=== PATIENT | female | born 1990 | race African-American/Black ===

== ENCOUNTER 2016-12-17 06:27 | Emergency (ER) | payer BC ==
[~2016-12-17 06:27] MED LIST: ETHI1TAB6; GABA300C3 PO; METH18 PO; ZOFR4TAB3 SL; [UNRECOGNIZED DRUG - CODE] PO
[2016-12-17 06:29] VITALS: BP 115/58; PULSE 77; RESP 16; TEMP 97.6; O2SAT 98
[2016-12-17] MEDS ORDERED: GABA300C5 PO (06:40)
[2016-12-17] MEDS ORDERED: LEVE10003 PO (06:41)
[2016-12-17] MEDS ORDERED: ETHI1TAB4 PO (06:41)
[2016-12-17 06:42] VITALS: BP 135/73; PULSE 86; RESP 18; O2SAT 100
[2016-12-17 06:47] VITALS: O2SAT 98
[2016-12-17 07:07] LABS: AUTOMATED NEUTROPHIL # 4.9 TH/MM3 (1.8-7.7); BASOPHIL % 0.5 % (0.0-2.0); EOSINOPHIL % 0.3 % (0.0-4.0); HEMATOCRIT 36.1 % (35.0-46.0); HEMO FLAGS DIFF FINAL; LYMPH % 26.2 % (9.0-44.0); LYMPHOCYTE # 1.9 TH/MM3 (1.0-4.8); MEAN CELL VOLUME 90.4 FL (80.0-100.0); MEAN CORPUSCULAR HEMOGLOBIN 30.7 PG (27.0-34.0); MEAN CORPUSCULAR HGB CONC 33.9 % (32.0-36.0); MONO % 4.5 % (0.0-8.0); NEUT % 68.5 % (16.0-70.0); PLATELET COUNT 283 TH/MM3 (150-450); RED BLOOD COUNT 3.99 MIL/MM3 (4.00-5.30); RED CELL DISTRIBUTION WIDTH 12.6 % (11.6-17.2); WHITE BLOOD COUNT 7.1 TH/MM3 (4.0-11.0)
[2016-12-17 07:14] LABS: BACTERIA, URINE RARE /hpf; BLOOD, URINE LARGE (NEG); COMMENT (UR) CULT NOT INDICATED; CULTURE IF INDICATED CULT NOT INDICATED; GLUCOSE,URINE NEG (NEG); KETONE, URINE NEG (NEG); MUCUS URINE FEW /lpf (OCC); NITRITE,URINE NEG (NEG); PH, URINE 7.5 (5.0-8.5); SQUAMOUS EPITHELIAL CELL URINE <1 /hpf (0-5); URINE COLOR YELLOW (YELLW/STRAW)
[2016-12-17 07:27] LABS: ALT (GPT) 23 U/L (10-53); ANION GAP 7 MEQ/L (5-15); AST (GOT) 10 U/L (15-37); BICARBONATE 26.3 MEQ/L (21.0-32.0); BLOOD UREA NITROGEN 12 MG/DL (7-18); CHLORIDE 106 MEQ/L (98-107); GLOMERULAR FILTRATION RATE 113 ML/MIN (>89); POTASSIUM 3.3 MEQ/L (3.5-5.1); SODIUM (NA) 139 MEQ/L (136-145)
[2016-12-17 07:30] LABS: ALKALINE PHOSPHATASE 58 U/L (45-117); TOTAL BILIRUBIN ADULT 0.4 MG/DL (0.2-1.0)
[2016-12-17] MEDS ORDERED: ONDANSETRON HCL 4 MG/2 ML VIAL IV PUSH ONE (07:45)
[2016-12-17] MEDS ORDERED: POTASSIUM CHLORIDE 25 MEQ EFFERVESCENT TAB PO ONE (07:45)
[2016-12-17] MEDS ORDERED: SODIUM CHLOR 0.9% 1000 ML INJ 1,000 ML IV ONE (07:45)
[2016-12-17] MEDS ORDERED: PANTOPRAZOLE SODIUM 40 MG VIAL IV PUSH ONE (07:45)
[2016-12-17] MEDS ORDERED: MORPHINE SULFATE 8 MG/ML INJ IV PUSH ONE (07:45)
[2016-12-17 07:59] VITALS: BP 126/72; PULSE 73; RESP 18; O2SAT 96
--- NOTE | 2016-12-17 08:49 | RADRPT ---
EXAM DATE/TIME: 12/17/2016 08:14 [facility] COMPARISON: No previous studies available for comparison. INDICATIONS : Right upper quandrant pain. MEDICAL HISTORY : Seizures. Asthma. Gallstones. ADHD. SURGICAL HISTORY : None. ENCOUNTER: Initial ACUITY: 1 day PAIN SCORE: 8/10 LOCATION: Right upper quadrant MEASUREMENTS: LIVER: 14.3 cm length COMMON DUCT: 6 mm RIGHT KIDNEY: 10.2 x 5.1 x 5.3 cm FINDINGS: LIVER: Normal echotexture without focal lesion or ductal dilatation. The portal system is patent. No ascite s. COMMON DUCT: No intraluminal mass or stone visualized. GALLBLADDER: There are multiple stones in the gallbladder. The largest stone measures approximately 1.5 cm. There is thickening of the gallbladder wall at 5 mm. No fluid around the gallbladder. PANCREAS: The visualized portions are within normal limits. RIGHT KIDNEY: No evidence of hydronephrosis, stone, or mass. CONCLUSION: 1. Multiple gallstones in the gallbladder. No biliary tract obstruction. Mild thickening of the gallb ladder wall. These findings indicate chronic gallbladder disease. 2. Otherwise, the rest of the exam is grossly unremarkable. Booker Sahni MD on December 17, 2016 at 8:47 Board Certified Radiologist. This report was verified electronically.
[2016-12-17] MEDS ORDERED: KETOROLAC TROMETHAMINE 30 MG/ML (IVP) VIAL IV PUSH ONE (09:15)
[2016-12-17 09:19] VITALS: BP 102/55
[2016-12-17] MEDS ORDERED: ZOFR4TAB3 SL (09:23)
[2016-12-17] MEDS ORDERED: HYDR-3516 PO (09:23)
--- NOTE | 2016-12-17 09:23 | PD ---
HPI Chief Complaint: Abdominal Pain Time Seen by Provider: 07:04 Travel History International Travel<30 days: No Contact w/Intl Traveler<30days: No Traveled to known affect area: No History of Present Illness HPI 26-year-old female came to the emergency room with history of right upper quadrant abdominal pain that started at 2 in the morning. Patient says that she has had this kind of pain in the past. She was told 4 years ago that she has gallbladder stones and she should be able to pass it on her own. Her last meal was last night dinner which was cheeseburgers. She has vomited multiple times since then. She appeared to be in distress. The pain is mostly in the right upper quadrant located without much radiation. No diarrhea. She has not taken anything for the pain at home. Vital signs were relatively stable. She is otherwise a healthy person. She is currently on her period. [facility] Past Medical History Narrative Medical List of her past medical, surgical, social and family history is reviewed from the nursing note. Hx Anticoagulant Therapy: No ADHD: Yes Asthma: Yes Cardiovascular Problems: No Chemotherapy: No Cerebrovascular Accident: No Diabetes: No Diminished Hearing: No Gastrointestinal Disorders: Yes (gallstones) Psychiatric: Yes (ADHD) Respiratory: No Immunizations Current: Yes Seizures: Yes Tetanus Vaccination: Unknown Influenza Vaccination: No ?: Not LMP: : 0 Past Surgical History Hysterectomy: No Social History Alcohol Use: Yes (OCC) Tobacco Use: No Substance Use: No Allergies-Medications (Allergen,Severity, Reaction): Coded Allergies: acetaminophen (Unverified Allergy, Mild, Rash, 12/17/16) Comments List of her allergies reviewed from the nursing note. Reported Meds & Prescriptions Reported Meds & Active Scripts Active Zofran Odt (Ondansetron Odt) 4 Mg Tab 4 Mg SL Q6HR PRN Hydrocodone-Acetaminophen 5-325 mg Tab 1 Tab PO Q6H PRN Reported Callie (Drospirenone-Ethinyl Estradiol) 3-0.03 Mg Tab 1 Tab PO DAILY Levetiracetam 1,000 Mg Tab 1,000 Mg PO BID Gabapentin 300 Mg Cap 300 Mg PO BID Narrative Medication List of her home medications reviewed from the nursing note. Review of Systems Except as stated in HPI: all other systems reviewed are Neg Gastrointestinal: Positive: Vomiting, Abdominal Pain Physical Exam Narrative GENERAL: Awake, alert, moderate to significant distress, anxious SKIN: Focused skin assessment warm/dry. HEAD: Atraumatic. Normocephalic. EYES: Pupils equal and round. No scleral icterus. No injection or drainage. ENT: No nasal bleeding or discharge. Mucous membranes pink and moist. NECK: Trachea midline. No JVD. CARDIOVASCULAR: Regular rate and rhythm. No murmur appreciated. RESPIRATORY: No accessory muscle use. Clear to auscultation. Breath sounds equal bilaterally. GASTROINTESTINAL: Abdomen soft, Mott sign positive, nondistended. Hepatic and splenic margins not palpable. MUSCULOSKELETAL: No obvious deformities. No clubbing. No cyanosis. No edema. NEUROLOGICAL: Awake and alert. No obvious cranial nerve deficits. Motor grossly within normal limits. Normal speech. PSYCHIATRIC: Appropriate mood and affect; insight and judgment normal. Data Data Last Documented VS Orders Orders Complete Blood Count With Diff (12/17/16 06:45) Comprehensive Metabolic Panel (12/17/16 06:45) Urinalysis - C+S If Indicated (12/17/16 06:45) Ed Urine Pregnancytest Poc (12/17/16 06:45) Iv Access Insert/Monitor (12/17/16 06:45) Oxygen Administration (12/17/16 06:45) Oximetry (12/17/16 06:45) Lipase (12/17/16 06:45) Potassium Chloride Eff (K-Lyte Cl Eff) (12/17/16 07:45) Ondansetron Inj (Zofran Inj) (12/17/16 07:45) Sodium Chlor 0.9% 1000 Ml Inj (Ns 1000 M (12/17/16 07:45) Ed Poc Ultrasound (12/17/16 ) Pantoprazole Inj (Protonix Inj) (12/17/16 07:45) Morphine Inj (Morphine Inj) (12/17/16 07:45) Us Abdomen Gallbladder (12/17/16 ) Ed Discharge Order (12/17/16 09:14) Ketorolac Inj (Toradol Inj) (12/17/16 09:15) Labs Laboratory Tests Test 12/17/16 06:45 White Blood Count 7.1 TH/MM3 Red Blood Count 3.99 MIL/MM3 Hemoglobin 12.2 GM/DL Hematocrit 36.1 % Mean Corpuscular Volume 90.4 FL Mean Corpuscular Hemoglobin 30.7 PG Mean Corpuscular Hemoglobin Concent 33.9 % Red Cell Distribution Width 12.6 % Platelet Count 283 TH/MM3 Mean Platelet Volume 8.2 FL Neutrophils (%) (Auto) 68.5 % Lymphocytes (%) (Auto) 26.2 % Monocytes (%) (Auto) 4.5 % Eosinophils (%) (Auto) 0.3 % Basophils (%) (Auto) 0.5 % Neutrophils # (Auto) 4.9 TH/MM3 Lymphocytes # (Auto) 1.9 TH/MM3 Monocytes # (Auto) 0.3 TH/MM3 Eosinophils # (Auto) 0.0 TH/MM3 Basophils # (Auto) 0.0 TH/MM3 CBC Comment DIFF FINAL Differential Comment Urine Color YELLOW Urine Turbidity CLEAR Urine pH 7.5 Urine Specific [place]bilt 1.024 Urine Protein 30 mg/dL Urine Glucose (UA) NEG mg/dL Urine Ketones NEG mg/dL Urine Occult Blood LARGE Urine Nitrite NEG Urine Bilirubin NEG Urine Urobilinogen LESS THAN 2.0 MG/DL Urine Leukocyte Esterase NEG Urine RBC 1 /hpf Urine WBC 2 /hpf Urine Squamous Epithelial Cells <1 /hpf Urine Amorphous Sediment RARE Urine Bacteria RARE /hpf Urine Mucus FEW /lpf Microscopic Urinalysis Comment CULT NOT INDICATED Blood Urea Nitrogen 12 MG/DL Creatinine 0.76 MG/DL Random Glucose 108 MG/DL Total Protein 7.7 GM/DL Albumin 3.9 GM/DL Calcium Level 8.9 MG/DL Alkaline Phosphatase 58 U/L Aspartate Amino Transf (AST/SGOT) 10 U/L Alanine Aminotransferase (ALT/SGPT) 23 U/L Total Bilirubin 0.4 MG/DL Sodium Level 139 MEQ/L Potassium Level 3.3 MEQ/L Chloride Level 106 MEQ/L Carbon Dioxide Level 26.3 MEQ/L Anion Gap 7 MEQ/L Estimat Glomerular Filtration Rate 113 ML/MIN Lipase 77 U/L [facility] Medical Decision Making Medical Screen Exam Complete: Yes Emergency Medical Condition: Yes Medical Record Reviewed: Yes Differential Diagnosis Acute cholecystitis, biliary colic, ascending cholangitis Narrative Course 9:19 AM blood test results are back and within acceptable limits. Based on the bedside ultrasound that I had done I ordered a formal ultrasound. That shows multiple gallbladder stones along with chronic gallbladder changes from chronic disease. I discussed the case with the general surgeon Dr. Crandall and as per him since there is no elevated WBC or LFTs it is okay to discharge her home once pain control is achieved and he'll follow-up with her in his office and schedule an outpatient appointment for surgery. I discussed this with the patient. She said the pain seemed to be coming back and I have ordered a second dose of pain medication. At this point I am comfortable discharging her home otherwise. She was hydrated as well. Procedures Procedure Narrative Emergency department right upper quadrant ultrasound was performed with patient consent. Curvilinear probe was used in the transverse and sagittal views within the right upper quadrant revealing gallbladder with multiple gallstones but without obvious wall thickening or cholecystic fluid. EKG Prior to Arrival: No Physician Communication Physician Communication Dr. Butler Diagnosis Primary Impression: Biliary colic Additional Impression: Cholelithiasis Qualified Codes: K80.20 - Calculus of gallbladder without cholecystitis without obstruction Referrals: Kirk Crandall MD 2 days Additional Instructions: Called the office of the general surgeon whose name and number been given to you to make an appointment for an outpatient surgery to get the gallbladder taken out. Meanwhile do not eat food that 80s fatty or high fat containing. Take clear liquid diet for the next 24 hours. Take the medication as per the prescription direction. Pain medicine will make you groggy. Do not drive or operate heavy machinery while on the medications. Med/Other Pt SpecificInfo: Prescription(s) given Scripts Ondansetron Odt (Zofran Odt) 4 Mg Tab 4 MG SL Q6HR Y for Nausea/Vomiting, #15 TAB 0 Refills Prov: Terry Nava MD 12/17/16 Hydrocodone-Acetaminophen (Hydrocodone-Acetaminophen) 5-325 mg Tab 1 TAB PO Q6H Y for PAIN, #15 TAB 0 Refills Prov: Terry Nava MD 12/17/16 Disposition: 01 DISCHARGE HOME Condition: Stable Terry Nava MD Dec 17, 2016 09:23
== END 2016-12-17 10:18 | disposition home or self-care (01) ==
LOC: NEPE 06:27
DX: K80.20 Calculus of gallbladder without cholecystitis without obstruction (principal)
CPT/HCPCS: 76705; 80053; 81001; 83690; 84703; 85025; 96361; 96374; 96375; 99285; C9113; J1885; J2270; J2405; J7030

== ENCOUNTER 2017-01-01 07:35 | Observation (INO) | payer BC ==
[~2017-01-01] VITALS: Ht 167.6 cm; Wt 72.3 kg
[~2017-01-01 07:35] MED LIST changes: +ETHI1TAB4 PO; -ETHI1TAB6; -GABA300C3 PO; +GABA300C5 PO; +LEVE10003 PO; -METH18 PO; -ZOFR4TAB3 SL; -[UNRECOGNIZED DRUG - CODE] PO
[2017-01-01] MEDS ORDERED: SODIUM CHLORID 0.9% 500 ML IV PRN (08:15)
[2017-01-01] MEDS ORDERED: CHLORHEXIDINE GLUCONATE 2 % 1 PACK (2 CLOTHS) TOPICAL PRN (08:15)
[2017-01-01] MEDS ORDERED: POVIDONE IODINE 5% (ANTISEPSIS KIT) 4 APPLICATIONS EACH NARE PRN (08:15)
[2017-01-01] MEDS ORDERED: LACTATED RINGER'S 1000 ML IV PRN (08:15)
[2017-01-01] MEDS ORDERED: METOPROLOL TARTRATE 25 MG TAB PO PRN (08:15)
[2017-01-01] MEDS ORDERED: INSULIN HUMAN REGULAR 1,000 UNITS/10 ML VIAL SQ PRN (08:15)
[2017-01-01 09:05] LABS: AUTOMATED NEUTROPHIL # 2.7 TH/MM3 (1.8-7.7); BASOPHIL % 0.6 % (0.0-2.0); EOSINOPHIL # 0.1 TH/MM3 (0-0.4); EOSINOPHIL % 1.1 % (0.0-4.0); HEMO FLAGS DIFF FINAL; LYMPH % 37.7 % (9.0-44.0); LYMPHOCYTE # 2.1 TH/MM3 (1.0-4.8); MEAN CELL VOLUME 90.4 FL (80.0-100.0); MEAN CORPUSCULAR HGB CONC 33.2 % (32.0-36.0); MONO % 11.8 % (0.0-8.0); NEUT % 48.8 % (16.0-70.0); PLATELET COUNT 337 TH/MM3 (150-450); RED BLOOD COUNT 3.88 MIL/MM3 (4.00-5.30); RED CELL DISTRIBUTION WIDTH 12.2 % (11.6-17.2); WHITE BLOOD COUNT 5.6 TH/MM3 (4.0-11.0)
[2017-01-01 09:34] LABS: BICARBONATE 22.5 MEQ/L (21.0-32.0); POTASSIUM 3.9 MEQ/L (3.5-5.1)
[2017-01-01] MEDS ORDERED: ceFAZolin 2 GM PREMIX 50 ML IV ONE (11:27)
[2017-01-01] MEDS ORDERED: LIDOCAINE HCL 1% PF 5 ML AMPULE OTHER ONE (12:00)
[2017-01-01] MEDS ORDERED: GLYCOPYRROLATE 1 MG/5 ML SYRINGE IV PUSH ONE (12:00)
[2017-01-01] MEDS ORDERED: DEXAMETHASONE SOD PHOS 4 MG/ML VIAL IV ONE (12:00)
[2017-01-01] MEDS ORDERED: LACTATED RINGER'S 1000 ML INJ 1,000 ML IV ONE (12:00)
[2017-01-01] MEDS ORDERED: STERILE WATER FOR INJECTION 20 ML VIAL IV ONE (12:00)
[2017-01-01] MEDS ORDERED: ONDANSETRON HCL 4 MG/2 ML VIAL IV PUSH ONE (12:00)
[2017-01-01] MEDS ORDERED: ROCURONIUM INJ 50 MG/5 ML SYRINGE IV PUSH ONE (12:00)
[2017-01-01] MEDS ORDERED: MIDAZOLAM HCL 2 MG/2 ML VIAL IV ONE (12:00)
[2017-01-01] MEDS ORDERED: ceFAZolin INJ 1,000 MG VIAL IV ONE (12:00)
[2017-01-01] MEDS ORDERED: NEOSTIGMINE 3 MG/3 ML SYR IV ONE (12:00)
[2017-01-01] MEDS ORDERED: MORPHINE SULFATE 4 MG/ML INJ IV ONE (12:00)
[2017-01-01] MEDS ORDERED: PROPOFOL 200 MG/20 ML AMP IV ONE (12:00)
[2017-01-01] MEDS ORDERED: DO NOT ADM ANY ANTICOAGULANT DRUGS PRN (12:12)
[2017-01-01] MEDS ORDERED: ONDANSETRON HCL 4 MG/2 ML VIAL IV PUSH PRN (12:15)
[2017-01-01] MEDS ORDERED: Post-op Orders (for Pharmacy) MISC XX ONE (12:15)
[2017-01-01] MEDS ORDERED: NALOXONE HCL 0.4 MG/ML AMP IV PUSH PRN (12:15)
[2017-01-01] MEDS ORDERED: SODIUM CHLORIDE 0.9% FLUSH 10 ML FLUSH IV FLUSH PRN (12:15)
[2017-01-01] MEDS ORDERED: MORPHINE SULFATE 4 MG/ML INJ IV PUSH PRN (12:15)
[2017-01-01] MEDS ORDERED: *morphine SULFATE 8 MG/ML PERIprocedure ONLY ONE (12:21)
--- NOTE | 2017-01-01 12:38 | MP ---
cc: MEETA PEREZ MD DATE OF SURGERY 01/01/2017 PREOPERATIVE DIAGNOSIS Acute calculous cholecystitis, cholelithiasis and biliary colic. POSTOPERATIVE DIAGNOSIS Acute calculous cholecystitis, cholelithiasis and biliary colic. PROCEDURE Laparoscopic cholecystectomy. SURGEON MD Raz ANESTHESIA General. BLOOD LOSS 30 cc. OPERATIVE PROCEDURE The patient prepped and draped in the usual fashion. Supraumbilical vertical incision made down to the fascia. This was opened under excision, Ivory cannula placed, abdomen insufflated with CO2 and the patient placed in reverse Trendelenburg with a tilt. Under vision of the 0-degree camera lens, subxiphoid and two right upper quadrant ports are placed and then the abdomen explored in quadrants. No other abnormalities are found. The gallbladder is found to be partially intrahepatic, swollen and reddish. It is grasped with paramjitator and Reinier clamps and elevated. Very carefully it is from the plate in order to identify the structures and then cystic artery and cystic duct are carefully dissected with [place] dissector, triple ligated Ligaclips and divided. The gallbladder is taken off the liver bed with spatula cautery instrument, delivered through the supraumbilical incision using EndoCatch bag. The area is irrigated with saline, meticulous hemostasis obtained. All instruments withdrawn. Incisions is closed with 0 Vicryl and 4-0 subcuticular Monocryl. The patient tolerates the procedure well. Meeta VILLAREAL/JAELYN /12:24 PM /12:29 PM
[2017-01-01] MEDS: GABAPENTIN 300 MG CAP PO SCH ×2 (14:00→21:00)
[2017-01-01] MEDS: SODIUM CHLOR 0.9% 1000 ML INJ 1,000 ML IV SCH (15:39)
[2017-01-01 16:00] VITALS: BP 92/54; PULSE 68; RESP 20; TEMP 96.9; O2SAT 98
[2017-01-01] MEDS ORDERED: DROSPIRENONE ETHINYL ESTRADIOL PO SCH (16:00)
[2017-01-01] MEDS: ACETAMINOPHEN/HYDROcodone 325 MG/5 MG TAB PO PRN (18:46)
[2017-01-01] MEDS: levETIRAcetam 500 MG TAB PO SCH ×2 (19:27→21:00)
[2017-01-01 20:24] VITALS: BP 113/65; PULSE 48; RESP 16; TEMP 96.2; O2SAT 99
[2017-01-01] MEDS ORDERED: SODIUM CHLORIDE 0.9% FLUSH 10 ML FLUSH IV FLUSH SCH (21:00)
[2017-01-01] MEDS: FAMOTIDINE 20 MG TAB PO SCH (21:01)
[2017-01-02] MEDS: SODIUM CHLOR 0.9% 1000 ML INJ 1,000 ML IV SCH
[2017-01-02 00:06] VITALS: BP 112/53; PULSE 68; RESP 16; TEMP 97.2; O2SAT 97
[2017-01-02 05:05] VITALS: BP 100/59; PULSE 52; RESP 16; TEMP 97.1; O2SAT 100
[2017-01-02 08:00] VITALS: BP 109/54; PULSE 53; RESP 16; TEMP 97.9; O2SAT 100
[2017-01-02 08:05] LABS: AUTOMATED NEUTROPHIL # 6.3 TH/MM3 (1.8-7.7); BASOPHIL % 0.2 % (0.0-2.0); EOSINOPHIL % 0.2 % (0.0-4.0); HEMATOCRIT 33.3 % (35.0-46.0); HEMO FLAGS DIFF FINAL; LYMPH % 15.8 % (9.0-44.0); LYMPHOCYTE # 1.3 TH/MM3 (1.0-4.8); MEAN CELL VOLUME 90.6 FL (80.0-100.0); MEAN CORPUSCULAR HEMOGLOBIN 30.9 PG (27.0-34.0); MEAN CORPUSCULAR HGB CONC 34.1 % (32.0-36.0); MONO % 8.1 % (0.0-8.0); NEUT % 75.7 % (16.0-70.0); PLATELET COUNT 313 TH/MM3 (150-450); RED BLOOD COUNT 3.68 MIL/MM3 (4.00-5.30); RED CELL DISTRIBUTION WIDTH 12.6 % (11.6-17.2); WHITE BLOOD COUNT 8.3 TH/MM3 (4.0-11.0)
[2017-01-02 08:44] LABS: INDIRECT BILIRUBIN 0.5 MG/DL (0.0-0.8); TOTAL BILIRUBIN ADULT 0.6 MG/DL (0.2-1.0)
[2017-01-02] MEDS: levETIRAcetam 500 MG TAB PO SCH (09:11)
[2017-01-02] MEDS: FAMOTIDINE 20 MG TAB PO SCH (09:11)
[2017-01-02] MEDS: GABAPENTIN 300 MG CAP PO SCH (09:11)
[2017-01-02] MEDS: ACETAMINOPHEN/HYDROcodone 325 MG/5 MG TAB PO PRN (09:11)
[2017-01-02 09:50] VITALS: O2SAT 98
[2017-01-02] MEDS ORDERED: HYDR-3516 PO (10:27)
[2017-01-02 12:00] VITALS: BP 100/61; PULSE 73; RESP 17; TEMP 97.6; O2SAT 99
== END 2017-01-02 12:30 | disposition home or self-care (01) ==
LOC: HSDC 07:35 → HSDI 12:15 → N07B 13:48
PROVIDERS: ADMIT Surgery; ATTEND Surgery
DX: K80.00 Calculus of gallbladder with acute cholecystitis without obstruction (principal)
CPT/HCPCS: 00790; 47562; 80048; 80076; 85025; 88304; 94150; 96361; 96374; 96375; G0378; J0690; J1100; J2250; J2270; J2405; J2710; J3010; J7030; J7120

== ENCOUNTER 2017-01-15 15:47 | Emergency (ER) | payer BC ==
[~2017-01-15] VITALS: Ht 167.6 cm; Wt 70.0 kg
[~2017-01-15 15:47] MED LIST changes: +HYDR-3516 PO
[2017-01-15] MEDS ORDERED: IOHEXOL 350 MG/ML 10 ML VIAL (for RAD DIAG) IVCONTRAST ONE (15:48)
[2017-01-15 15:52] VITALS: BP 119/73; PULSE 77; RESP 20; TEMP 98.7; O2SAT 100
[2017-01-15] MEDS ORDERED: SODIUM CHLORIDE 0.9% FLUSH 10 ML FLUSH IV FLUSH PRN (18:00)
[2017-01-15 18:20] LABS: AUTOMATED NEUTROPHIL # 3.5 TH/MM3 (1.8-7.7); BASOPHIL # 0.1 TH/MM3 (0-0.2); BASOPHIL % 0.8 % (0.0-2.0); EOSINOPHIL # 0.3 TH/MM3 (0-0.4); EOSINOPHIL % 5.1 % (0.0-4.0); HEMATOCRIT 37.7 % (35.0-46.0); HEMO FLAGS DIFF FINAL; LYMPH % 33.6 % (9.0-44.0); LYMPHOCYTE # 2.2 TH/MM3 (1.0-4.8); MEAN CELL VOLUME 91.3 FL (80.0-100.0); MEAN CORPUSCULAR HEMOGLOBIN 31.3 PG (27.0-34.0); MEAN CORPUSCULAR HGB CONC 34.3 % (32.0-36.0); MONO % 7.2 % (0.0-8.0); NEUT % 53.3 % (16.0-70.0); PLATELET COUNT 373 TH/MM3 (150-450); RED BLOOD COUNT 4.13 MIL/MM3 (4.00-5.30); WHITE BLOOD COUNT 6.6 TH/MM3 (4.0-11.0)
--- NOTE | 2017-01-15 18:25 | PD ---
HPI Chief Complaint: GI Complaint Time Seen by Provider: 17:50 Travel History International Travel<30 days: No Contact w/Intl Traveler<30days: No Traveled to known affect area: No History of Present Illness HPI 26-year-old female that presents to the ED for evaluation of right upper quadrant pain. Patient had a gallbladder removed on January 01. This was done by Dr. Holder. Per patient she's been doing well after the surgery and has been taking Aleve for the pain. Per patient since today she developed new onset pain on the right upper quadrant. Per patient he gets worse with deep breaths as well as with touch. She did taken anything for this. Per patient she is not taking any narcotic medications because her mother did not want her to take them secondary to concern for drug abuse in the family. Patient herself states that currently the pain is 4 out of one every get severe gets to be 7 out of 10. Patient is sharp. She has not called her surgeon patient denies any fevers chills or sweats. No chest pain or shortness of breath. Denies any nausea or vomiting. No bowel movement or urinary issues. Allergy to acetaminophen. PFSH Past Medical History Hx Anticoagulant Therapy: No ADHD: Yes Asthma: Yes Cancer: No Cardiovascular Problems: No Chemotherapy: No COPD: No Cerebrovascular Accident: No Diabetes: No Diminished Hearing: No Endocrine: No Gastrointestinal Disorders: Yes (gallstones) Genitourinary: Yes Hepatitis: No Hiatal Hernia: No Immune Disorder: No Musculoskeletal: Yes (scoliosis) Neurologic: Yes Psychiatric: No Reproductive: No Respiratory: Yes Immunizations Current: Yes Migraines: Yes Seizures: Yes Sleep Apnea: No Thyroid Disease: No ?: Not LMP: 12/20/16 : 0 Past Surgical History AICD: No Hysterectomy: No Joint Replacement: No Pacemaker: No Social History Alcohol Use: Yes (OCC) Tobacco Use: No Substance Use: No Allergies-Medications (Allergen,Severity, Reaction): Coded Allergies: acetaminophen (Unverified Allergy, Mild, Rash, 12/31/16) Reported Meds & Prescriptions Reported Meds & Active Scripts Active Zofran (Ondansetron HCl) 4 Mg Tab 4 Mg PO Q6HR PRN Hydrocodone-Acetamin 5-325 mg (Hydrocodone/Acetaminophen) 5 Mg-325 Mg Tablet 1 Tab PO Q6HR PRN Hydrocodone-Acetaminophen 5-325 mg Tab 1 Tab PO Q4H PRN Reported Callie (Drospirenone-Ethinyl Estradiol) 3-0.03 Mg Tab 1 Tab PO DAILY Levetiracetam 1,000 Mg Tab 1,000 Mg PO BID Gabapentin 300 Mg Cap 300 Mg PO BID Review of Systems Except as stated in HPI: all other systems reviewed are Neg Physical Exam Narrative GENERAL: SKIN: Warm and dry. HEAD: Atraumatic. Normocephalic. EYES: Pupils equal and round. No scleral icterus. No injection or drainage. ENT: No nasal bleeding or discharge. Mucous membranes pink and moist. Tongue is midline. No uvula deviation. NECK: Trachea midline. No JVD. CARDIOVASCULAR: Regular rate and rhythm. No murmurs, S3, S4. RESPIRATORY: No accessory muscle use. Clear to auscultation. Breath sounds equal bilaterally. GASTROINTESTINAL: Abdomen soft, tender to touch on the right upper quadrant, nondistended. Hepatic and splenic margins not palpable. MUSCULOSKELETAL: Extremities without clubbing, cyanosis, or edema. No obvious deformities. Full range of motion of the upper and lower extremities bilaterally. 2+ pulses bilaterally. NEUROLOGICAL: Awake and alert. No obvious cranial nerve deficits. Motor grossly within normal limits. Five out of 5 muscle strength in the arms and legs. Normal speech. PSYCHIATRIC: Appropriate mood and affect; insight and judgment normal. Data Data Last Documented VS Vital Signs Date Time Temp Pulse Resp B/P (MAP) Pulse Ox O2 Delivery O2 Flow Rate FiO2 01/15/17 19:45 16 01/15/17 19:26 72 118/65 (82) 100 Room Air 01/15/17 15:52 98.7 Orders Orders Complete Blood Count With Diff (01/15/17 17:52) Comprehensive Metabolic Panel (01/15/17 17:52) Lipase (01/15/17 17:52) Lactic Acid (01/15/17 17:52) Prothrombin Time / Inr (Pt) (01/15/17:52) Act Partial Throm Time (Ptt) (01/15/17 17:52) Ct Abd/Pel W Iv Contrast(Rout) (01/15/17 17:52) Iv Access Insert/Monitor (01/15/17 17:52) Ecg Monitoring (01/15/17:52) Sodium Chlor 0.9% 1000 Ml Inj (Ns 1000 M (01/15/17 17:52) Sodium Chloride 0.9% Flush (Ns Flush) (01/15/17 18:00) Ed Urine Pregnancytest Poc (01/15/17 17:52) Morphine Inj (Morphine Inj) (01/15/17 18:30) Ondansetron Inj (Zofran Inj) (01/15/17 18:30) Iohexol 350 Inj (Omnipaque 350 Inj) (01/15/17 15:48) Morphine Inj (Morphine Inj) (01/15/17 21:30) Ed Discharge Order (01/15/17 21:29) Labs Laboratory Tests Test 01/15/17 18:00 01/15/17 18:45 01/15/17 19:42 White Blood Count 6.6 TH/MM3 Red Blood Count 4.13 MIL/MM3 Hemoglobin 12.9 GM/DL Hematocrit 37.7 % Mean Corpuscular Volume 91.3 FL Mean Corpuscular Hemoglobin 31.3 PG Mean Corpuscular Hemoglobin Concent 34.3 % Red Cell Distribution Width 13.0 % Platelet Count 373 TH/MM3 Mean Platelet Volume 8.6 FL Neutrophils (%) (Auto) 53.3 % Lymphocytes (%) (Auto) 33.6 % Monocytes (%) (Auto) 7.2 % Eosinophils (%) (Auto) 5.1 % Basophils (%) (Auto) 0.8 % Neutrophils # (Auto) 3.5 TH/MM3 Lymphocytes # (Auto) 2.2 TH/MM3 Monocytes # (Auto) 0.5 TH/MM3 Eosinophils # (Auto) 0.3 TH/MM3 Basophils # (Auto) 0.1 TH/MM3 CBC Comment DIFF FINAL Differential Comment Prothrombin Time 10.6 SEC Prothromb Time International Ratio 1.0 RATIO Activated Partial Thromboplast Time 27.5 SEC Blood Urea Nitrogen 11 MG/DL Creatinine 0.67 MG/DL Random Glucose 79 MG/DL Total Protein 7.4 GM/DL Albumin 3.7 GM/DL Calcium Level 8.6 MG/DL Alkaline Phosphatase 69 U/L Aspartate Amino Transf (AST/SGOT) 41 U/L Alanine Aminotransferase (ALT/SGPT) 46 U/L Total Bilirubin 0.6 MG/DL Sodium Level 135 MEQ/L Potassium Level 3.8 MEQ/L Chloride Level 106 MEQ/L Carbon Dioxide Level 20.9 MEQ/L Anion Gap 8 MEQ/L Estimat Glomerular Filtration Rate 131 ML/MIN Lipase 53 U/L Lactic Acid Level 0.5 mmol/L MDM Medical Decision Making Medical Screen Exam Complete: Yes Emergency Medical Condition: Yes Medical Record Reviewed: Yes Interpretation(s) CBC & BMP Diagram 01/15/17 18:00 01/15/17 18:45 Total Protein 7.4, Albumin 3.7, Calcium Level 8.6, Alkaline Phosphatase 69, Aspartate Amino Transf (AST/SGOT) 41 H, Alanine Aminotransferase (ALT/SGPT) 46, Total Bilirubin 0.6 liapse WNL UA negative lactic acid WNL Last Impressions Abdomen/Pelvis CT 01/15/17 1752 Signed Impressions: Service Date/Time: Friday, January 15, 2017 20:04 - CONCLUSION: No acute abnormality is seen. There is mild intrahepatic biliary duct dilatation. This may reflect a reservoir phenomenon as the patient is status post cholecystectomy. Sunny Mark MD Differential Diagnosis Abdominal pain versus acute abdomen versus pancreatitis versus gallbladder disease versus postsurgical pain versus obstruction Narrative Course 26-year-old female that presents to the ED for evaluation of abdominal pain. Patient was properly examined and was found to have signs and symptoms of unclear to this time. Patient did have recent surgery here at [facility]. Labs and imaging were ordered. Patient was given pain medication. Labs and imaging showed Diagnosis Primary Impression: Abdominal pain Qualified Codes: R10.11 - Right upper quadrant pain Patient Instructions: General Instructions, Narcotic given in the ED Departure Forms: Tests/Procedures, Work Release Enter return to work date: Jan 18, 2017 Additional Instructions: Take medications as prescribed. Follow-up with PCP. See ED for any worsening symptoms. Do not drink or drive while taking pain medication. Apply ice or heat as needed for pain Med/Other Pt SpecificInfo: Prescription(s) given Scripts Ondansetron (Zofran) 4 Mg Tab 4 MG PO Q6HR Y for NAUSEA OR VOMITING, #10 TAB 0 Refills Prov: Jayant Kee MD 01/15/17 Hydrocodone/Acetaminophen (Hydrocodone-Acetamin 5-325 mg) 5 Mg-325 Mg Tablet 1 TAB PO Q6HR Y for PAIN SCALE 1 TO 10, #14 Prov: Jayant Kee MD 01/15/17 Disposition: 01 DISCHARGE HOME Condition: Stable Dani Hughes Jan 15, 2017 18:25
[2017-01-15] MEDS: SODIUM CHLOR 0.9% 1000 ML INJ 1,000 ML IV SCH ×2 (18:26→18:59)
[2017-01-15] MEDS ORDERED: ONDANSETRON HCL 4 MG/2 ML VIAL IV PUSH ONE (18:30)
[2017-01-15] MEDS ORDERED: MORPHINE SULFATE 4 MG/ML INJ IV PUSH ONE ×2 (18:30→21:30)
[2017-01-15 19:26] VITALS: BP 118/65; PULSE 72; RESP 16; O2SAT 100
[2017-01-15 19:31] LABS: APTT (PATIENT) 27.5 SEC (24.3-30.1); PROTHROMBIN TIME - PATIENT 10.6 SEC (9.8-11.6)
[2017-01-15 19:35] LABS: ANION GAP 8 MEQ/L (5-15); AST (GOT) 41 U/L (15-37); BICARBONATE 20.9 MEQ/L (21.0-32.0); BLOOD UREA NITROGEN 11 MG/DL (7-18); CHLORIDE 106 MEQ/L (98-107); GLOMERULAR FILTRATION RATE 131 ML/MIN (>89); POTASSIUM 3.8 MEQ/L (3.5-5.1); SODIUM (NA) 135 MEQ/L (136-145)
[2017-01-15 19:36] LABS: ALT (GPT) 46 U/L (10-53)
[2017-01-15 19:38] LABS: ALKALINE PHOSPHATASE 69 U/L (45-117); TOTAL BILIRUBIN ADULT 0.6 MG/DL (0.2-1.0)
--- NOTE | 2017-01-15 21:22 | RADRPT ---
EXAM DATE/TIME: 01/15/2017 20:04 [facility] COMPARISON: No previous studies available for comparison. INDICATIONS : Patient complains of mid upper abdominal pain with nausea. IV CONTRAST: 80 cc Omnipaque 350 (iohexol) IV ORAL CONTRAST: No oral contrast ingested. RADIATION DOSE: 7.46 CTDIvol (mGy) MEDICAL HISTORY : Seizures. SURGICAL HISTORY : Cholecystectomy. ENCOUNTER: Initial ACUITY: 1 day PAIN SCALE: 5/10 LOCATION: upper quadrant TECHNIQUE: Volumetric scanning of the abdomen and pelvis was performed. Using automated exposure control and ad justment of the mA and/or kV according to patient size, radiation dose was kept as low as reasonably achievable to obtain optimal diagnostic quality images. DICOM format image data is available electro nically for review and comparison. FINDINGS: LOWER LUNGS: The visualized lower lungs are clear. LIVER: Homogeneous density without lesion. The patient is status post cholecystectomy. There is central intr ahepatic biliary duct dilatation which may reflect a reservoir phenomenon following cholecystectomy. SPLEEN: Normal size without lesion. PANCREAS: Within normal limits. KIDNEYS: Normal in size and shape. There is no mass, stone or hydronephrosis. ADRENAL GLANDS: Within normal limits. VASCULAR: There is no aortic aneurysm. BOWEL/MESENTERY: The stomach, small bowel, and colon demonstrate no acute abnormality. There is no free intraperitone al air or fluid. ABDOMINAL WALL: Within normal limits. RETROPERITONEUM: There is no lymphadenopathy. BLADDER: No wall thickening or mass. REPRODUCTIVE: Within normal limits. INGUINAL: There is no lymphadenopathy or hernia. MUSCULOSKELETAL: Within normal limits for patient age. CONCLUSION: No acute abnormality is seen. There is mild intrahepatic biliary duct dilatation. This may reflect a reservoir phenomenon as the patient is status post cholecystectomy. Sunny Mark MD on January 15, 2017 at 21:18 Board Certified Radiologist. This report was verified electronically.
[2017-01-15] MEDS ORDERED: ZOFR4TAB PO (21:28)
[2017-01-15] MEDS ORDERED: HYDR-3516 PO (21:28)
[2017-01-15 21:52] VITALS: BP 103/55; PULSE 67; RESP 16; O2SAT 99
== END 2017-01-15 22:25 | disposition home or self-care (01) ==
LOC: NEPD 15:47
DX: R10.11 Right upper quadrant pain (principal); Z98.890 Other specified postprocedural states; F90.9 Attention-deficit hyperactivity disorder, unspecified type; J45.909 Unspecified asthma, uncomplicated
CPT/HCPCS: 74177; 80053; 83605; 83690; 84703; 85025; 85610; 85730; 96374; 96375; 96376; 99285; J2270; J2405; J7030; Q9967

== ENCOUNTER 2017-06-11 17:44 | Emergency (ER) | payer BC ==
[~2017-06-11] VITALS: Ht 177.8 cm; Wt 68.0 kg
[~2017-06-11 17:44] MED LIST changes: +ZOFR4TAB PO
[2017-06-11 18:10] VITALS: BP 116/58; PULSE 90; RESP 18; TEMP 98.4; O2SAT 98
[2017-06-11 19:16] LABS: AUTOMATED NEUTROPHIL # 4.8 TH/MM3 (1.8-7.7); BASOPHIL # 0.1 TH/MM3 (0-0.2); BASOPHIL % 0.8 % (0.0-2.0); EOSINOPHIL % 0.5 % (0.0-4.0); HEMATOCRIT 34.8 % (35.0-46.0); HEMOGLOBIN 11.8 GM/DL (11.6-15.3); LYMPH % 30.9 % (9.0-44.0); LYMPHOCYTE # 2.6 TH/MM3 (1.0-4.8); MEAN CELL VOLUME 89.4 FL (80.0-100.0); MEAN CORPUSCULAR HEMOGLOBIN 30.2 PG (27.0-34.0); MEAN CORPUSCULAR HGB CONC 33.8 % (32.0-36.0); MEAN PLATELET VOLUME 7.9 FL (7.0-11.0); MONO % 10.3 % (0.0-8.0); MONOCYTE # 0.9 TH/MM3 (0-0.9); NEUT % 57.5 % (16.0-70.0); PLATELET COUNT 366 TH/MM3 (150-450); RED BLOOD COUNT 3.89 MIL/MM3 (4.00-5.30); WHITE BLOOD COUNT 8.4 TH/MM3 (4.0-11.0)
--- NOTE | 2017-06-11 19:30 | PD ---
HPI Chief Complaint: Abdominal Pain Time Seen by Provider: 19:22 Travel History International Travel<30 days: No Contact w/Intl Traveler<30days: No Traveled to known affect area: No History of Present Illness HPI The patient was seen and examined in the presence of the nurse. This patient had an episode today between 3 and 4:00 PM. She was seated at her desk at work and felt hot. She got nauseous and had an episode of emesis. She believes that she is 6 weeks . She had a positive home test. She is not having pelvic pain or vaginal bleeding or discharge. Denies fever. She has no gallbladder. Symptom severity was moderate. Duration 1 hour. No alleviating factors. No exacerbating factors. She is improved at this point. PFSH Past Medical History Hx Anticoagulant Therapy: No ADHD: Yes Asthma: Yes Cancer: No Cardiovascular Problems: No Chemotherapy: No COPD: No Cerebrovascular Accident: No Diabetes: No Diminished Hearing: No Endocrine: No Gastrointestinal Disorders: No (gallstones) Genitourinary: Yes Headaches: Yes Hepatitis: No Hiatal Hernia: No Immune Disorder: No Implanted Vascular Access Dvce: No Medical other: No Musculoskeletal: Yes (scoliosis) Neurologic: Yes Psychiatric: No Reproductive: No Respiratory: Yes Immunizations Current: Yes Migraines: Yes Seizures: Yes Sleep Apnea: No Thyroid Disease: No Tetanus Vaccination: Unknown Influenza Vaccination: Yes ?: LMP: 04/30/17 : 0 Past Surgical History AICD: No Cholecystectomy: Yes () Hysterectomy: No Joint Replacement: No Pacemaker: No Other Surgery: No Social History Alcohol Use: Yes (OCC) Tobacco Use: No Substance Use: No Allergies-Medications (Allergen,Severity, Reaction): Coded Allergies: acetaminophen (Unverified Allergy, Mild, Rash, 06/11/17) Reported Meds & Prescriptions Reported Meds & Active Scripts Active Zofran (Ondansetron HCl) 4 Mg Tab 4 Mg PO Q6HR PRN Hydrocodone-Acetamin 5-325 mg (Hydrocodone/Acetaminophen) 5 Mg-325 Mg Tablet 1 Tab PO Q6HR PRN Hydrocodone-Acetaminophen 5-325 mg Tab 1 Tab PO Q4H PRN Reported Callie (Drospirenone-Ethinyl Estradiol) 3-0.03 Mg Tab 1 Tab PO DAILY Levetiracetam 1,000 Mg Tab 1,000 Mg PO BID Gabapentin 300 Mg Cap 300 Mg PO BID Review of Systems General / Constitutional: No: Fever Eyes: No: Visual changes HENT: No: Headaches Cardiovascular: No: Chest Pain or Discomfort Respiratory: No: Shortness of Breath Gastrointestinal: Positive: Nausea, Vomiting Genitourinary: No: Dysuria Musculoskeletal: No: Pain Skin: No Rash Neurologic: No: Weakness Psychiatric: No: Depression Endocrine: No: Polydipsia Hematologic/Lymphatic: No: Easy Bruising Physical Exam Narrative GENERAL: Well-nourished, well-developed patient in no apparent distress. SKIN: Focused skin assessment reveals no rash and nodules. Skin is Warm and dry. HEAD: Atraumatic. Normocephalic. EYES: Pupils equal and round. No scleral icterus. No injection or drainage. ENT: No nasal bleeding or discharge. Mucous membranes pink and moist. NECK: Trachea midline. No JVD. CARDIOVASCULAR: Regular rate and rhythm. No murmur appreciated. RESPIRATORY: No accessory muscle use. Clear to auscultation. Breath sounds equal bilaterally. GASTROINTESTINAL: Abdomen soft, non-tender, nondistended. Hepatic and splenic margins not palpable. MUSCULOSKELETAL: No obvious deformities. No clubbing. No cyanosis. No edema. NEUROLOGICAL: Awake and alert. No obvious cranial nerve deficits. Motor grossly within normal limits. Normal speech. PSYCHIATRIC: Appropriate mood and affect; insight and judgment normal. Data Data Last Documented VS Vital Signs Date Time Temp Pulse Resp B/P (MAP) Pulse Ox O2 Delivery O2 Flow Rate FiO2 06/11/17 18:10 98.4 90 18 116/58 (77) 98 Orders Orders Complete Blood Count With Diff (06/11/17 18:13) Comprehensive Metabolic Panel (06/11/17 18:13) Urinalysis - C+S If Indicated (06/11/17 18:13) Ed Urine Pregnancytest Poc (06/11/17 18:13) Lipase (06/11/17 18:13) Beta Hcg (Quant/Titer) (06/11/17 18:20) Labs Laboratory Tests Test 06/11/17 18:20 White Blood Count 8.4 TH/MM3 Red Blood Count 3.89 MIL/MM3 Hemoglobin 11.8 GM/DL Hematocrit 34.8 % Mean Corpuscular Volume 89.4 FL Mean Corpuscular Hemoglobin 30.2 PG Mean Corpuscular Hemoglobin Concent 33.8 % Red Cell Distribution Width 13.0 % Platelet Count 366 TH/MM3 Mean Platelet Volume 7.9 FL Neutrophils (%) (Auto) 57.5 % Lymphocytes (%) (Auto) 30.9 % Monocytes (%) (Auto) 10.3 % Eosinophils (%) (Auto) 0.5 % Basophils (%) (Auto) 0.8 % Neutrophils # (Auto) 4.8 TH/MM3 Lymphocytes # (Auto) 2.6 TH/MM3 Monocytes # (Auto) 0.9 TH/MM3 Eosinophils # (Auto) 0.0 TH/MM3 Basophils # (Auto) 0.1 TH/MM3 CBC Comment DIFF FINAL Differential Comment Urine Color YELLOW Urine Turbidity CLEAR Urine pH 6.0 Urine Specific Kopperl 1.023 Urine Protein TRACE mg/dL Urine Glucose (UA) NEG mg/dL Urine Ketones TRACE mg/dL Urine Occult Blood NEG Urine Nitrite NEG Urine Bilirubin NEG Urine Urobilinogen LESS THAN 2.0 MG/DL Urine Leukocyte Esterase SMALL Urine RBC 1 /hpf Urine WBC 3 /hpf Urine Squamous Epithelial Cells 5 /hpf Urine Amorphous Sediment RARE Urine Mucus FEW /lpf Microscopic Urinalysis Comment CULT NOT INDICATED Blood Urea Nitrogen 12 MG/DL Creatinine 0.73 MG/DL Random Glucose 76 MG/DL Total Protein 7.8 GM/DL Albumin 3.9 GM/DL Calcium Level 9.2 MG/DL Alkaline Phosphatase 64 U/L Aspartate Amino Transf (AST/SGOT) 15 U/L Alanine Aminotransferase (ALT/SGPT) 19 U/L Total Bilirubin 0.5 MG/DL Sodium Level 136 MEQ/L Potassium Level 3.1 MEQ/L Chloride Level 104 MEQ/L Carbon Dioxide Level 25.8 MEQ/L Anion Gap 6 MEQ/L Estimat Glomerular Filtration Rate 119 ML/MIN Lipase 72 U/L Human Chorionic Gonadotropin, Quant 38240 MIU/ML [facility] Medical Decision Making Medical Screen Exam Complete: Yes Emergency Medical Condition: Yes Medical Record Reviewed: Yes Differential Diagnosis Hyperemesis gravidarum, colitis, ileus Narrative Course I have reviewed the patient's electronic medical record. CBC is normal Metabolic studies reveal hypokalemia of 3.1 otherwise normal Lipase is normal LFTs are normal Beta hCG is 52,000 Her abdomen is soft and benign and nontender. Patient stable for outpatient follow-up. She is got an OB appointment in 2 weeks. I replaced her hypokalemia with 50 mEq orally. she has been here 4 hours and had no vomiting. She is not nauseous. Diagnosis Primary Impression: Nausea and vomiting Qualified Codes: R11.2 - Nausea with vomiting, unspecified Additional Impressions: Epigastric abdominal pain of unknown etiology Hypokalemia and not yet delivered in first trimester Additional Instructions: Follow-up with [facility] Med/Other Pt SpecificInfo: Other Disposition: 01 DISCHARGE HOME Condition: Stable Ady Day MD Jun 11, 2017 19:30
[2017-06-11 19:35] LABS: ALBUMIN 3.9 GM/DL (3.4-5.0); AST (GOT) 15 U/L (15-37); BICARBONATE 25.8 MEQ/L (21.0-32.0); BLOOD UREA NITROGEN 12 MG/DL (7-18); CALCIUM 9.2 MG/DL (8.5-10.1); CHLORIDE 104 MEQ/L (98-107); CREATININE 0.73 MG/DL (0.50-1.00); GLOMERULAR FILTRATION RATE 119 ML/MIN (>89); GLUCOSE,RANDOM 76 MG/DL (74-106); SODIUM (NA) 136 MEQ/L (136-145)
[2017-06-11 19:38] LABS: ALKALINE PHOSPHATASE 64 U/L (45-117); ALT (GPT) 19 U/L (10-53); TOTAL BILIRUBIN ADULT 0.5 MG/DL (0.2-1.0); TOTAL PROTEIN 7.8 GM/DL (6.4-8.2)
[2017-06-11 19:55] LABS: AMORPHOUS SEDIMENT, URINE RARE; BILIRUBIN, URINE NEG (NEG); BLOOD, URINE NEG (NEG); GLUCOSE,URINE NEG (NEG); KETONE, URINE TRACE mg/dL (NEG); MUCUS URINE FEW /lpf (OCC); NITRITE,URINE NEG (NEG); SQUAMOUS EPITHELIAL CELL URINE 5 /hpf (0-5); URINE COLOR YELLOW (YELLW/STRAW); URINE LEUKOCYTE ESTERASE SMALL (NEG)
[2017-06-11] MEDS ORDERED: POTASSIUM BICARBONATE 25 MEQ EFFERVESCENT TAB PO ONE (22:15)
== END 2017-06-11 22:19 | disposition home or self-care (01) ==
LOC: NEPD 17:44
DX: O21.9 Vomiting of pregnancy, unspecified (principal); O26.891 Other specified pregnancy related conditions, first trimester; R10.13 Epigastric pain; E87.6 Hypokalemia; O99.341 Other mental disorders complicating pregnancy, first trimester; F90.9 Attention-deficit hyperactivity disorder, unspecified type; M41.9 Scoliosis, unspecified; J45.909 Unspecified asthma, uncomplicated; Z34.91 Encounter for supervision of normal pregnancy, unspecified, first trimester
CPT/HCPCS: 80053; 81001; 83690; 84702; 84703; 85025; 99283